=== PATIENT | male | born 1970 | race Caucasian/White ===

== ENCOUNTER 2018-02-14 06:03 | Emergency (ER) | payer OTHER ==
[~2018-02-14] VITALS: Ht 180.3 cm; Wt 113.4 kg
--- NOTE | 2018-02-14 19:00 | Emergency Room Report ---
History of Present Illness General Chief Complaint: Lower Extremity Injury Source: Patient Present Illness HPI Mr. Allen is a pleasant healthy male who injured his left lower extremity at his place of work. He slipped on the floor landing on his left foot and left leg. He felt and heard a pop at the distal lateral thigh just above the knee. 20 years ago he had a "lateral release" for abnormal patellar tracking on the affected extremity. No other injuries. Pain is severe. He is limping. Allergies: Coded Allergies: No Known Allergies (Unverified , 02/14/18) Patient History Reviewed Nursing Documentation: PMH: Agreed; PSxH: Agreed Nursing Documentation-PMH Past Medical History: No Stated History Review of Systems Constitutional: Denies: fever, malaise Musculoskeletal: Reports: joint pain, muscle pain; Denies: joint swelling Neurological: Denies: numbness, paresthesia, tingling Physical Exam Vital Signs Date Time Temp Pulse Resp B/P (MAP) Pulse Ox O2 Delivery O2 Flow Rate FiO2 02/14/18 18:15 107 15 122/80 96 Room Air Sp02 EP Interpretation: reviewed, normal General Appearance: well appearing, no apparent distress, alert, GCS 15, non- toxic Neck: normal inspection, full range of motion Respiratory: no respiratory distress Musculoskeletal: other - walking with limp, mild left knee edema, lateral tenderness, able to extend and flex at knee with considerable discomfort, + popliteal pulse intact Skin: normal inspection, normal color, no rash, warm/dry Procedures Splinting Splinting : Consent: Written Pre-Made Type: knee immobilizer Pre-Proc Neuro Vasc Exam: normal Post-Proc Neuro Vasc Exam: normal Patient Tolerated: Well Complications: None Medical Decision Making Diagnostic Impression: Primary Impression: Left knee sprain ER Course Mr. Allen presents with left lower extremity injury. I am concerned for LCL injury. Placed in knee immobilizer. Given crutches. rx: ibuprofen referred to orthopedic surgeon, recommended RICE Last Vital Signs Date Time Temp Pulse Resp B/P (MAP) Pulse Ox O2 Delivery O2 Flow Rate FiO2 02/14/18 18:15 107 15 122/80 96 Room Air Status: unchanged Disposition: HOME, SELF-CARE Condition: Stable Referrals: NON PHYSICIAN (PCP) Angeli Koch MD Feb 14, 2018 19:00
[2018-02-14] MEDS ORDERED: IBUPROFEN600 MG ORAL (19:01)
--- NOTE | 2018-02-14 19:03 | Diagnostic Imaging Report ---
EXAM: XR Left Knee, 3 views CLINICAL HISTORY: PAIN TECHNIQUE: Three views of the left knee. COMPARISON: No relevant prior studies available. FINDINGS: Bones/joints: Mild patellar spurring. No acute fracture. No dislocation. Soft tissues: Unremarkable. IMPRESSION: Mild patellar spurring. Otherwise unremarkable.
[2018-02-14 19:29] VITALS: BP 121/79
== END 2018-02-14 19:33 | disposition home or self-care (01) ==
LOC: EMR 18:43
DX: S83.92XA Sprain of unspecified site of left knee, initial encounter (principal); W01.0XXA Fall on same level from slipping, tripping and stumbling without subsequent striking against object, initial encounter; Y92.69 Other specified industrial and construction area as the place of occurrence of the external cause